=== PATIENT | male | born 1950 | race Caucasian/White ===

== ENCOUNTER → 2021-08-08 | Outpatient (CLI) | payer OTHER ==
[~2021-08-08] MED LIST: ASPIRIN325 MG PO; BRIMONIDINE TAR15 ML EYEBOTH; CITRACAL + D3; CRESTOR 10 MG T10 MG GT; FLOMAX 0.4 MG0.4 MG PO; LATANOPROST2.5 ML OP; LEVOTHYROXINE100 MC2 PO; PAROXETINE HCL10 MG PO; PROBIOTIC; TIMOLOL MALEATE15 M1 EYEBOTH; VITAMIN D325 MCG PO
[2021-08-08 13:55] LABS: HEMOGLOBIN 14.2 gm/dl (14.0-17.5); RED BLOOD COUNT 4.94 M/UL (4.20-5.50); WHITE BLOOD COUNT 6.4 K/UL (4.5-11.0)
[2021-08-08 14:23] LABS: BUN/CREATININE RATIO 17 (0-10)
== END ==
LOC: OPSV2 12:28 → EDSTATUS 12:30 → OPSV2 12:30
PROVIDERS: Orthopaedic Surgery
DX: Z01.818 Encounter for other preprocedural examination (principal); M18.9 Osteoarthritis of first carpometacarpal joint, unspecified
CPT/HCPCS: 36415; 80048; 85025; 93005

== ENCOUNTER → 2021-08-22 | Day surgery (SDC) | payer OTHER ==
[~2021-08-22] MED LIST changes: +HYDROCODON-ACE1 EAC4 PO
== END | disposition home or self-care (01) ==
LOC: OR 06:58
DX: M19.042 Primary osteoarthritis, left hand (principal); G89.18 Other acute postprocedural pain; E78.5 Hyperlipidemia, unspecified; E03.9 Hypothyroidism, unspecified; N40.0 Benign prostatic hyperplasia without lower urinary tract symptoms; G47.30 Sleep apnea, unspecified; Z99.89 Dependence on other enabling machines and devices; Z79.82 Long term (current) use of aspirin; Z79.899 Other long term (current) drug therapy
CPT/HCPCS: 73130; 76000; C1713; J0171; J0690; J1100; J2001; J2405; J2704; J2795; J3010; J7120